=== PATIENT | male | born 1950 | race Caucasian/White ===

== ENCOUNTER → 2016-07-10 | Outpatient (CLI) | payer MEDICARE, SELFPAY ==
[~2016-07-10] MED LIST: HYDROCODON-ACE1 EAC2 PO
== END ==
LOC: OPSV 12:00
DX: Z45.89 Encounter for adjustment and management of other implanted devices (principal); C18.9 Malignant neoplasm of colon, unspecified
CPT/HCPCS: 96523; J1642

== ENCOUNTER 2016-08-16 12:23 | Inpatient (IN) | payer MEDICARE, OTHER ==
[~2016-08-16] VITALS: Ht 182.9 cm; Wt 60.4 kg
[2016-08-16 15:29] LABS: HEMOGLOBIN 11.9 gm/dl (14.0-17.5); RED BLOOD COUNT 4.09 M/UL (4.20-5.50); WHITE BLOOD COUNT 8.6 K/UL (4.5-11.0)
[2016-08-16 16:03] LABS: BUN/CREATININE RATIO 28 (0-10)
[2016-08-16] MEDS ORDERED: HYDROCODON-ACE1 EAC2 PO (22:47)
[2016-08-17 06:19] LABS: BUN/CREATININE RATIO 23 (0-10)
[2016-08-17 07:44] LABS: RED BLOOD COUNT 3.78 M/UL (4.20-5.50); WHITE BLOOD COUNT 6.8 K/UL (4.5-11.0)
[2016-08-19 15:41] LABS: ADENOVIRUS F 40/41 Not Detected (Negative); ASTROVIRUS Not Detected (Negative); CAMPYLOBACTER Not Detected (Negative); CLOSTRIDIUM DIFFICILE TOX A/B Not Detected (Negative); CRYPTOSPORIDIUM Not Detected (Negative); E.COLI 0157 Not Detected (Negative); ENTAMOEBA HISTOLYTICA Not Detected (Negative); ENTEROAGGREGATIVE E.COLI (EAEC Not Detected (Negative); ENTEROPATHOGENIC E.COLI (EPEC) Not Detected (Negative); ENTEROTOXIGENIC E.COLI (ETEC) Not Detected (Negative); GIARDIA LAMBLIA Not Detected (Negative); NOROVIRUS GI/GII Not Detected (Negative); PLESIOMONAS SHIGELLOIDES Not Detected (Negative); ROTOVIRUS A Not Detected (Negative); SALMONELLA Not Detected (Negative); SAPOVIRUS Not Detected (Negative); SHIG/ENTEROINVAS.ECOLI (EIEC) Not Detected (Negative); SHIGA-LIK TOX.PRO.E.COLI (STEC Not Detected (Negative); VIBRIO Not Detected (Negative); VIBRIO CHOLERAE Not Detected (Negative); YERSINIA ENTEROCOLITICA Not Detected (Negative)
[2016-08-21 04:49] LABS: BUN/CREATININE RATIO 20 (0-10)
[2016-08-22 05:32] LABS: BUN/CREATININE RATIO 24 (0-10)
[2016-08-23 04:50] LABS: RED BLOOD COUNT 4.71 M/UL (4.20-5.50)
[2016-08-23 04:52] LABS: HEMOGLOBIN 13.7 gm/dl (14.0-17.5)
[2016-08-23 05:18] LABS: BUN/CREATININE RATIO 24 (0-10)
[2016-08-24 06:31] LABS: HEMOGLOBIN 14.3 gm/dl (14.0-17.5); RED BLOOD COUNT 4.81 M/UL (4.20-5.50); WHITE BLOOD COUNT 8.5 K/UL (4.5-11.0)
[2016-08-24 13:49] LABS: HEMOGLOBIN 14.1 gm/dl (14.0-17.5)
[2016-08-25 04:55] LABS: HEMOGLOBIN 13.5 gm/dl (14.0-17.5)
== END 2016-08-25 16:00 | DRG 375 ==
LOC: ER1 12:23 → PROG CARE 20:00 → MED SURG 4 20:00 → ZEROF 21:29 → MED SURG 4 22:12
PROVIDERS: Emergency Medicine; Family Medicine; Internal Medicine; ADMIT Hospitalist
DX: C20 Malignant neoplasm of rectum (principal); K62.5 Hemorrhage of anus and rectum; K56.60 Unspecified intestinal obstruction; E46 Unspecified protein-calorie malnutrition; I47.1 Supraventricular tachycardia; K43.3 Parastomal hernia with obstruction, without gangrene; Z85.038 Personal history of other malignant neoplasm of large intestine; Z93.3 Colostomy status; Z90.49 Acquired absence of other specified parts of digestive tract; R41.82 Altered mental status, unspecified; E87.6 Hypokalemia; D64.9 Anemia, unspecified; E88.09 Other disorders of plasma-protein metabolism, not elsewhere classified; M62.50 Muscle wasting and atrophy, not elsewhere classified, unspecified site; R10.9 Unspecified abdominal pain; Z51.89 Encounter for other specified aftercare; R53.1 Weakness; R42 Dizziness and giddiness; Z91.041 Radiographic dye allergy status; Z79.891 Long term (current) use of opiate analgesic
CPT/HCPCS: 36415; 70450; 71010; 74000; 80048; 80053; 82140; 82272; 82550; 82553; 82962; 83605; 83690; 83735; 83874; 83880; 84484; 85014; 85018; 85025; 85027; 85610; 85730; 86850; 86900; 86901; 87040; 87507; 93005; 94640; 94664; 96361; 96374; 96375; 97110; 99285; C9113; J1650; J2270; J2405; J7030; J7050